=== PATIENT | female | born 1970 | race American Indian/Alaskan Native ===

== ENCOUNTER 2019-05-13 19:47 | Emergency (ER) | payer SELFPAY ==
[2019-05-13 19:57] VITALS: BP 169/89
--- NOTE | 2019-05-13 20:15 | Event Note ---
ED Screening Note Date of service: 05/13/19 Time: 20:14 ED Screening Note: Pt complaisn of lower abdominal pain and heavy vaginal bleeding x 2 days states hx of tubal ligation and concerned for ectopic denies urinary symptoms +abnormal vaginal discharge denies hx of HTN This initial assessment/diagnostic orders/clinical plan/treatment(s) is/are subject to change based on patients health status, clinical progression and re- assessment by fellow clinical providers in the ED. Further treatment and workup at subsequent clinical providers discretion. Patient/guardian urged not to elope from the ED as their condition may be serious if not clinically assessed and managed. Initial orders include: US UA
--- NOTE | 2019-05-13 21:27 | Ultrasound Report ---
ULTRASOUND OBSTETRIC INDICATION / CLINICAL INFORMATION: r/o ectopic. female with pelvic pain TECHNIQUE: Transvaginal. COMPARISON: None available. FINDINGS: No intrauterine is visualized. Uterus measures 9.2 x 5.0 x 6.2 cm. Endometrial stripe measu res 1 cm in thickness. ADNEXA: Right ovary appears within normal limits without cyst or mass measuring 2.6 x 1.6 x 2.0 cm. L eft ovary measures 2.5 x 1.6 x 2.7 cm without cyst or mass. FREE FLUID: None. ADDITIONAL FINDINGS: None. IMPRESSION: 1. No visualized IUP. Differential considerations would include early nonvisualized IUP, nonvisualize d ectopic or recent miscarriage. Follow-up beta-hCG and ultrasound recommended. Signer Name: Rivas Vicente MD Signed: 05/13/2019 9:22 PM Workstation Name: [id number]
[2019-05-13 21:51] LABS: Hematocrit 31.6 % (30.3-42.9); Hemoglobin 10.7 gm/dl (10.1-14.3); Mean Corpuscular HGB Conc 34 % (30-34); Mean Corpuscular Volume 77 fl (79-97); Platelet Count 334 K/mm3 (140-440); Red Blood Count 4.14 M/mm3 (3.65-5.03); Red Cell Distribution Width 17.5 % (13.2-15.2)
[2019-05-13 22:18] LABS: BUN/Creatinine Ratio 18; Blood Urea Nitrogen 16 mg/dL (7-17); Hemolysis Index 21
--- NOTE | 2019-05-13 23:50 | Emergency Department Report ---
ED Female HPI - General Chief complaint: Abdominal Pain Stated complaint: POSS TUBAL PREG/MISCARRIAGE Time Seen by Provider: 05/13/19 20:12 Source: patient Mode of arrival: Ambulatory Limitations: No Limitations - History of Present Illness Initial comments: 48-year-old female with a past medical history tubal ligation previous presents to the hospital of suprapubic sharp intermittent abdominal pain and passing clots times 4 days. Patient states it is a possibility that she can be but she has not taken a test. She states her LMP is "around" 04/22/2019. Patient states she passed clots last 2 days but has only used 1.5 passed today. She does not have a local [facility] doctor. She denies dysuria. - Related Data Previous Rx's Medication Instructions Recorded Last Taken Type Naproxen [Naprosyn] 500 mg PO BID PRN #12 tablet 05/27/18 Unknown Rx Sulfamethoxazole/Trimethoprim 1 each PO BID 5 Days #10 tablet 05/27/18 Unknown Rx [Bactrim DS TAB] ALBUTEROL Inhaler (OR & NICU) 2 puff IH Q4HR PRN #1 inhalation 06/20/18 Unknown Rx [ProAir HFA Inhaler] Benzonatate [Tessalon Perles] 100 mg PO Q8HR #18 capsule 06/20/18 Unknown Rx Hydrocodone/Chlorphen P-Stirex 118 ml PO Q12HR PRN #5 otis.er.12h 06/20/18 Unknown Rx [Tussionex Pennkinetic Susp] predniSONE [Deltasone] 20 mg PO QDAY #15 tab 06/20/18 Unknown Rx Ibuprofen [Motrin] 800 mg PO Q8HR PRN #30 tablet 05/13/19 Unknown Rx Allergies Allergy/AdvReac Type Severity Reaction Status Date / Time peanut Allergy Rash Verified 06/20/18 08:58 Penicillins AdvReac Angioedema Verified 06/20/18 08:58 ED Review of Systems ROS: Stated complaint: POSS TUBAL PREG/MISCARRIAGE Other details as noted in HPI Comment: All other systems reviewed and negative ED Past Medical Hx - Past Medical History Previous Medical History?: Yes Additional medical history: Duffy's palsy - Surgical History Past Surgical History?: Yes Additional Surgical History: c sect. x 2, Tubal Ligation - Social History Smoking Status: Never Smoker Substance Use Type: None - Medications Home Medications: Home Medications Medication Instructions Recorded Confirmed Last Taken Type Naproxen [Naprosyn] 500 mg PO BID PRN #12 tablet 05/27/18 Unknown Rx Sulfamethoxazole/Trimethoprim 1 each PO BID 5 Days #10 tablet 05/27/18 Unknown Rx [Bactrim DS TAB] ALBUTEROL Inhaler (OR & NICU) 2 puff IH Q4HR PRN #1 inhalation 06/20/18 Unknown Rx [ProAir HFA Inhaler] Benzonatate [Tessalon Perles] 100 mg PO Q8HR #18 capsule 06/20/18 Unknown Rx Hydrocodone/Chlorphen P-Stirex 118 ml PO Q12HR PRN #5 otis.er.12h 06/20/18 Unknown Rx [Tussionex Pennkinetic Susp] predniSONE [Deltasone] 20 mg PO QDAY #15 tab 06/20/18 Unknown Rx Ibuprofen [Motrin] 800 mg PO Q8HR PRN #30 tablet 05/13/19 Unknown Rx ED Physical Exam - General Limitations: No Limitations - Other Other exam information: General: No acute distress Head: Atraumatic Eyes: normal appearance ENT: Moist mucous membranes Neck: Normal appearance, no midline tenderness Chest: Clear to auscultation bilaterally CV: Regular rate and rhythm Abdomen: Soft, normal bowel sounds, suprapubic tenderness, nondistended, no rebound or guarding Back: Normal inspection Extremity: Normal inspection infection, full range of motion Neuro: Alert O x 3, no facial asymmetry, speech clear, no gross motor sensory deficit Psych: Appropriate behavior Skin: No rash ED Course Vital Signs 05/13/19 19:56 Temperature 97.4 F L Pulse Rate 87 Respiratory 20 Rate Blood Pressure 169/89 O2 Sat by Pulse 97 Oximetry ED Medical Decision Making - Lab Data Result diagrams: 05/13/19 21:36 05/13/19 21:36 Lab Results 05/13/19 05/13/19 05/13/19 Range/Units 21:36 21:36 21:36 WBC 11.7 H (4.5-11.0) K/mm3 RBC 4.14 (3.65-5.03) M/mm3 Hgb 10.7 (10.1-14.3) gm/dl Hct 31.6 (30.3-42.9) % MCV 77 L (79-97) fl MCH 26 L (28-32) pg MCHC 34 (30-34) % RDW 17.5 H (13.2-15.2) % Plt Count 334 (140-440) K/mm3 Sodium 140 (137-145) mmol/L Potassium 3.2 L (3.6-5.0) mmol/L Chloride 102.8 (98-107) mmol/L Carbon Dioxide 24 (22-30) mmol/L Anion Gap 16 mmol/L BUN 16 (7-17) mg/dL Creatinine 0.9 (0.7-1.2) mg/dL Estimated GFR > 60 ml/min BUN/Creatinine Ratio 18 % Glucose 214 H (65-100) mg/dL Calcium 9.0 (8.4-10.2) mg/dL HCG, Qual Negative (Negative) - Radiology Data Radiology results: report reviewed Transvaginal ultrasound: No acute findings - Medical Decision Making Patient has bleeding without signs of , anemia, cardiac instability. Ultrasound unremarkable. Patient will be discharged home to follow up with [facility] - Differential Diagnosis miscarriage, anemia, ectopic, menses Critical Care Time: No Critical care attestation.: If time is entered above; I have spent that time in minutes in the direct care of this critically ill patient, excluding procedure time. ED Disposition Clinical Impression: Dysmenorrhea Disposition: DC-01 TO HOME OR SELFCARE Is pt being admited?: No Does the pt Need Aspirin: No Condition: Stable Instructions: Dysmenorrhea (ED) Additional Instructions: Take the medication as prescribed. Follow-up with your doctor or doctor/clinic provided. Return if symptoms worsen as indicated by your discharge instructions. Prescriptions: Ibuprofen [Motrin] 800 mg PO Q8HR PRN #30 tablet PRN Reason: Pain , Severe (7-10) Referrals: [facility] [Provider Group] - 3-5 Days Time of Disposition: 23:54
== END 2019-05-13 23:57 | disposition home or self-care (01) ==
LOC: ED 19:47
DX: N94.6 Dysmenorrhea, unspecified (principal); G51.0 Bell's palsy; Z98.51 Tubal ligation status; Z79.899 Other long term (current) drug therapy; Z91.010 Allergy to peanuts; Z88.0 Allergy status to penicillin
CPT/HCPCS: 36415; 76817; 80048; 84703; 85027